=== PATIENT | male | born 2000 | race Caucasian/White ===

== ENCOUNTER 2023-10-21 10:00 | Emergency (ER) | payer BC, SELFPAY ==
[2023-10-21] MEDS ORDERED: Triple Antibiotic Oint 1 GM Packet ONE (11:16)
== END 2023-10-21 11:30 | disposition home or self-care (01) ==
LOC: CSHERS 10:00
DX: S99.922A Unspecified injury of left foot, initial encounter (principal); F17.220 Nicotine dependence, chewing tobacco, uncomplicated; F17.290 Nicotine dependence, other tobacco product, uncomplicated; W28.XXXA Contact with powered lawn mower, initial encounter